=== PATIENT | male | born 2000 | race Caucasian/White ===

== ENCOUNTER 2023-12-12 16:48 | Emergency (ER) | payer OTHER | END 2023-12-12 17:49 | disposition home or self-care (01) | LOC: VM.ED 16:48 | DX: S93.402A Sprain of unspecified ligament of left ankle, initial encounter (principal); W18.42XA Slipping, tripping and stumbling without falling due to stepping into hole or opening, initial encounter; Y93.73 Activity, racquet and hand sports | CPT/HCPCS: 73610-LT; 99283 ==